=== PATIENT | female | born 1955 | race Caucasian/White ===

== ENCOUNTER 2018-07-03 09:49 | Emergency (ER) | payer OTHER, SELFPAY ==
[2018-07-03 09:51] VITALS: BP 168/80; PULSE 87; RESP 16; TEMP 36.7; O2SAT 99; BMI 25.7
--- NOTE | 2018-07-03 10:03 | EKG12_ITS ---
Test Reason : CP Blood Pressure : / mmHG Vent. Rate : 084 BPM Atrial Rate : 084 BPM P-R Int : 168 ms QRS Dur : 084 ms QT Int : 358 ms P-R-T Axes : 051 045 021 degrees QTc Int : 423 ms Normal sinus rhythm Normal ECG Confirmed by JAN KULKARNI, SARA ([id number]), managing editor BECKY CASTRO ([id number]) on 07/08/2018 11:10:52 AM Referred By: BERTA Confirmed By:SARA MONTOYA MD
--- NOTE | 2018-07-03 10:03 | RAD_ITS ---
STUDY: X-RAY CHEST REASON FOR EXAM: Female, 62 years old. Left-sided chest pain. TECHNIQUE: Single AP portable view of the chest. COMPARISON: Comparison is made with prior study dated June 14, 2013. FINDINGS: EKG electrodes are seen. Mild elevation of the right hemidiaphragm. There is no demonstrated pleural abnormality. Normal size heart. Normal mediastinum and ileana. There is prominence of the pulmonary hilar arteries without peripheral pulmonary vascular congestion, suggesting pulmonary hypertension. Normal visualized aortic arch and descending thoracic aorta. There is a dextroscoliosis of the thoracic spine. Normal visualized ribs, clavicles, and shoulders. There is no demonstrated abnormality of the visualized soft tissue structures of the upper abdomen. RAD/Chest 1 View (Portable) IMPRESSION: Enlarged bilateral pulmonary arteries. Electronically Signed: Guillaume Niño MD at 10:36 EST Tel [phone], Service support ,
[2018-07-03 10:29] LABS: Absolute Neutrophil Count 2.6 X10^3/uL (2.0-7.7); Basophil# 0.02 X10^3/uL; Basophil% 0.5 % (0-1); Eosinophil# 0.16 X10^3/uL; Eosinophils% 3.9 % (0-5); Hematocrit 43.4 % (37-47); Hemoglobin 14.3 g/dl (12.0-15.0); Lymphocyte % 24.5 % (19-41); Mean Corp Hgb Conc 32.9 g/gl (32-36); Mean Corpuscular Hgb 30.1 pg (27.0-32.0); Mean Corpuscular Volume 91.4 fL (81-99); Mean Platelet Vol. 11.8 fl (6.2-12.0); Monocyte# 0.35 X10^3/uL; Monocyte% 8.6 % (0-10); Neutrophil # 2.55 X10^3/uL (2.7-7.7); Neutrophil % 62.5 % (47-70); POSITIVE COUNT NO; POSITIVE DIFFERENTIAL NO; POSITIVE MORPHOLOGY NO; Platelet Count 207 K/mm3 (150-450); RBC Distribution Width CV 12.7 % (11.6-14.6); RBC Distribution Width SD 42.5 fl (35.1-43.9); Red Blood Count 4.75 M/mm3 (4.2-5.4); White Blood Count 4.1 K/mm3 (4.4-11.0)
[2018-07-03] MEDS: Aspirin 81 MG TAB.CHEW 324 MG PO (10:38)
[2018-07-03 10:49] VITALS: BP 162/81; PULSE 72; RESP 11; O2SAT 98
[2018-07-03 10:49] LABS: Anion Gap 8 (5-15); BUN 12 mg/dL (7-18); BUN/Creat Ratio 14.9 RATIO (10-20); Calcium,Total 9.1 mg/dL (8.5-10.1); Chloride 107 mmol/L (98-107); EST Glomerular Filtration Rate 77 mL/min (>60); Est Glom Filt Rate - Afr Amer 93 mL/min (>60); Estimated Creatinine Clearance 60.31 ml/min; Glucose 90 mg/dL (74-106); Potassium 3.9 mmol/L (3.5-5.1); Sodium Level 142 mmol/L (136-145)
--- NOTE | 2018-07-03 11:01 | ED.VISSUMM ---
- ER Visit Summary Date of Service: 07/03/18 Chief Complaint: Chest pain History of Present Illness: The patient is a 62 F with chest pain that started this morning. She was doing back exercises at the time. She was not working out her chest muscles. She describes the pain as an uncomfortable feeling. It is in her left chest and radiates to the back. Worse with moving. She took some Tylenol. No other associated symptoms like shortness of breath, nausea, sweats. No history of heart disease, venous thromboembolism, or thoracic aortic dissection. No fevers or recent illness. No travel or recent surgeries or hospitalizations. Non-smoker. No other medical history. Physical Examination: Afebrile and vital signs unremarkable except blood pressure is 168/80. Alert and oriented. No acute distress. Heart regular rate and rhythm. Lungs clear in all med[place]. Abdomen soft and nontender. Skin normal in color without rash. Calves and pulses normal. Test Results: EKG showed sinus rhythm at a rate of 84. No sign of acute ischemia or infarction pattern. White count 4.1. Metabolic panel normal. Troponin normal. Chest x-ray showed enlarged bilateral pulmonary arteries but was otherwise unremarkable. Emergency Department Course and Treatment: Patient treated with aspirin. Declined anything else for pain. Heart score is 1. Pulse ox 98% and vitals unremarkable. She is low risk for ACS, PE, dissection. Patient declined delta testing and would like to follow-up as an outpatient. Return for any new or worsening issues. Risks discussed. Patient voiced understanding. Treatment Plan: As above Disposition: Discharge Impression: 1. Chest pain unclear etiology This note was generated with [employer] dictation software. It may contain incorrect words, spelling, and punctuation that were not noted in review of the chart prior to signing ED Disposition - Plan for ED Patient: Chief Complaint: Chest Pain Referrals: Gianluca Gambino III, MD [Primary Care Provider] -
--- NOTE | 2018-07-03 11:06 | ED.DEP ---
ED Disposition - Plan for ED Patient: Chief Complaint: Chest Pain Instructions: ED Chest Pain Atypical Unkn Cause Prescriptions: Ibuprofen [Motrin] 800 mg PO TID PRN PRN #20 tab PRN Reason: Pain Cyclobenzaprine [Flexeril] 10 mg PO TID PRN #20 tab PRN Reason: Muscle Spasm Referrals: Gianluca Gambino III, MD [Primary Care Provider] -
== END 2018-07-03 11:39 | disposition home or self-care (01) ==
PROVIDERS: Emergency Provider Emergency Medicine; Family Provider Family Medicine; PCP Family Medicine
DX: R07.9 Chest pain, unspecified (principal); I77.89 Other specified disorders of arteries and arterioles; M41.9 Scoliosis, unspecified
CPT/HCPCS: 71045; 80048; 84484; 85025; 93005; 99285; A4216

== ENCOUNTER 2019-03-06 20:00 | Emergency (ER) | payer OTHER, SELFPAY ==
[2019-03-06 20:01] VITALS: BP 177/93; PULSE 77; RESP 18; TEMP 36.4; O2SAT 99; BMI 26.9
--- NOTE | 2019-03-06 20:19 | CT_ITS ---
STUDY: CT BRAIN WITHOUT CONTRAST REASON FOR EXAM: Female, 63 years old. Paresthesia RADIATION DOSAGE (If Supplied By Facility): CTDIvol = ( 44.99 ) mGy, DLP = ( 779.24 ) mGycm TECHNIQUE: Transaxial CT imaging of the brain was performed without administration of intravenous contrast material. Individualized dose optimization techniques were used for this CT. COMPARISON: No relevant priors. FINDINGS: Normal soft tissue structures. Normal calvarium. Prior postsurgical changes of the right orbit There is mild cerebral atrophy with widening of the extra-axial spaces and ventricular dilatation. There are areas of decreased attenuation within the white matter tracts of the supratentorial brain, consistent with microvascular disease changes. Normal basal ganglia and thalami. Normal brainstem. Normal cerebellum. There is no intracranial hemorrhage. There are no findings of an acute ischemic infarction. Normal visualized paranasal sinuses. CT/Brain/Head without Contrast IMPRESSION: Chronic involutional changes of the brain. Electronically Signed: Riccardo Wilkes DO at 21:31 EDT Tel , Service support ,
--- NOTE | 2019-03-06 20:20 | EKG12_ITS ---
Test Reason : NUMBNESS/TINGLING Blood Pressure : / mmHG Vent. Rate : 069 BPM Atrial Rate : 069 BPM P-R Int : 188 ms QRS Dur : 084 ms QT Int : 378 ms P-R-T Axes : 043 028 005 degrees QTc Int : 405 ms Normal sinus rhythm Possible Left atrial enlargement Borderline ECG Confirmed by BILLY DEL CASTILLO ([id number]), publishing editor NITESH CARRILLO ([id number]) on 03/09/2019 2:20:23 PM Referred By: ERIN Confirmed By:BILLY DEL CASTILLO
[2019-03-06] MEDS: 0.9% Normal Saline 1,000 ML 150 ML IV (20:36)
[2019-03-06 20:43] LABS: Absolute Lymphocyte Count 1.59 X10^3/uL (0.83-4.51); Absolute Neutrophil Count 2.5 X10^3/uL (2.0-7.7); Basophil# 0.03 X10^3/uL; Basophil% 0.6 % (0-1); Eosinophil# 0.16 X10^3/uL; Eosinophils% 3.3 % (0-5); Hematocrit 43.8 % (37-47); Hemoglobin 14.4 g/dL (12.0-15.0); Lymphocyte # 1.59 X10^3/ul (4.0); Lymphocyte % 33.1 % (19-41); Mean Corp Hgb Conc 32.9 g/dL (32-36); Mean Corpuscular Hgb 30.8 pg (27.0-32.0); Mean Corpuscular Volume 93.6 fL (81-99); Mean Platelet Vol. 11.9 fl (6.2-12.0); Monocyte% 10.4 % (0-10); NRBC Flagged by Analyzer 0 % (0-5); Neutrophil # 2.51 X10^3/uL (2.7-7.7); Neutrophil % 52.4 % (47-70); Platelet Count 208 K/mm3 (150-450); RBC Distribution Width CV 12.4 % (11.6-14.6); RBC Distribution Width SD 42.5 fl (35.1-43.9); Red Blood Count 4.68 M/mm3 (4.2-5.4); White Blood Count 4.8 K/mm3 (4.4-11.0)
[2019-03-06 21:01] LABS: Anion Gap 4 (5-15); BUN 17 mg/dL (7-18); BUN/Creat Ratio 21.7 RATIO (10-20); Calcium,Total 9.1 mg/dL (8.5-10.1); Chloride 109 mmol/L (98-107); Creatinine, Serum 0.78 mg/dL (0.55-1.02); EST Glomerular Filtration Rate 79 mL/min (>60); Est Glom Filt Rate - Afr Amer 95 mL/min (>60); Estimated Creatinine Clearance 61.07 ml/min; Glucose 89 mg/dL (74-106); Potassium 3.8 mmol/L (3.5-5.1); Sodium Level 140 mmol/L (136-145)
--- NOTE | 2019-03-06 21:42 | NURSING ---
PAGED FREEDOM AT [id number]
--- NOTE | 2019-03-06 22:02 | ED.DCSUM_ITS ---
- ER Visit Summary Date of Service: 03/06/19 Chief Complaint: [Tingling to face] History of Present Illness: The patient is a 63 F [resents to the emergency department with tingling to her face that started around 2 PM today. Patient states that she was mowing the lawn when she noticed it. She denies any lip or tongue swelling. She initially thought she may just be having allergic reaction to something. She denies any weakness in the extremities or numbness or tingling in extremities. She denies difficulty with speech. She denies visual changes. Patient is never had symptoms like this before. Patient called the nurse line and was advised to come to the emergency department. Patient does have history of hypertension. Patient is on candesartan for her hypertension which she has been on for over a month.] Physical Examination: [HEENT-PERRLA, EOMI. Cranial nerves II through XII grossly intact. TMs clear. Mucous membranes moist. No adenopathy. Cardiovascular-regular rate and rhythm without murmur or ectopy Lungs-clear to auscultation, chest wall stable without crepitus or subcu emphysema Abdomen-normoactive bowel sounds, soft, nontender, no rebound or rigidity, no peritoneal signs. Neuro wefh-gjyiol-suxk and heel vallecillo testing within normal limits, negative Romberg, negative for drift, fundi benign. NIH stroke scale was a 1 for paresthesias to the face but no motor deficits noted. Extremities-intact ?4, normal range of motion, normal pulses, atraumatic] Test Results: [EKG obtained on arrival showed a sinus rhythm with a ventricular rate of 69 bpm with no acute segment changes. CBC with differential was normal. Chemistries normal. Troponin is less than 0.15. CT scan of the brain without contrast showed some chronic microvascular changes but no acute infarcts.] Emergency Department Course and Treatment: [Patient was placed on a ekg monitor on arrival and IV line was established.] Treatment Plan: [Patient case was discussed with neurology on-call Dr. Dawson who does not believe symptoms are neurologic given the fact that she has bilateral paresthesias to both sides of her face. I am in agreement I do not feel her symptoms are neurologic. Possible she may have had a reaction to something came she came in contact with or possibly food related. I do not see any evidence of angioedema and i am not convinced this is medication related. O n repeat examination at 2205 patient states that she feels like her symptoms are improving.] Disposition: [Discharged home in stable condition] Impression: [Paresthesias-etiology uncertain] This note was generated with [employer] dictation software. It may contain incorrect words, spelling, and punctuation that were not noted in review of the chart prior to signing ED Disposition - Plan for ED Patient: Referrals: Gianluca Gambino III, MD [Primary Care Provider] -
--- NOTE | 2019-03-06 22:07 | ED.DEP ---
ED Disposition - Plan for ED Patient: Instructions: Paraesthesias Referrals: Gianluca Gambino III, MD [Primary Care Provider] - 3-5 Days
--- NOTE | 2019-03-06 22:08 | ED.DEP ---
ED Disposition - Plan for ED Patient: Instructions: Paraesthesias Prescriptions: DiphenhydrAMINE [Benadryl] 25 mg PO TID PRN PRN #7 cap PRN Reason: Anaphylaxis Prescription Printed Referrals: Gianluca Gambino III, MD [Primary Care Provider] - 3-5 Days
[2019-03-06 22:16] VITALS: PULSE 61; RESP 16; O2SAT 98
== END 2019-03-06 22:24 | disposition home or self-care (01) ==
LOC: ED 20:50
PROVIDERS: Emergency Provider Emergency Medicine; Family Provider Family Medicine; PCP Family Medicine
DX: R20.2 Paresthesia of skin (principal); I10 Essential (primary) hypertension; I27.20 Pulmonary hypertension, unspecified; Z79.899 Other long term (current) drug therapy
CPT/HCPCS: 70450; 80048; 84484; 85025; 93005; 96360; 96361; 99285; J7030

== ENCOUNTER → 2019-12-17 06:47 | Outpatient (CLI) | payer BC, SELFPAY ==
--- NOTE | 2019-12-17 11:56 | STRESSREP_ITS ---
Stress Test Report Date: 12/17/2019 Procedure: Pharmacologic stress nuclear imaging study Indications: Chest pain Consent: Per the patient Procedure: The patient underwent pharmacologic (Regadenoson) evaluation with a peak heart rate of 96 beats per minute (61 %predicted maximal heart rate) and a peak blood pressure of 124/78 mmHg. The baseline ECG demonstrated normal sinus rhythm. EKG during lexiscan infusion revealed no significant ST-T changes. EKG post infusion revealed no significant ST-T changes [There were no cardiac dysrhythmias pretest, during pharmacologic infusion, or recovery]. [There was no complaint of chest discomfort during pharmacologic infusion or recovery]. The examination was discontinued secondary to completion of protocol. Impression: 1. Lexiscan stress test test is negative for Lexiscan infusion induced EKG changes of ischemia. 2. Lexiscan stress test test is negative for Lexiscan infusion induced chest pain. 3. Results of the nuclear portion of the test is as below Myocardial perfusion imaging study: Technique: The patient was injected with 11 millicuries of technetium 99m Cardiolite and subsequently rest SPECT Cardiolite nuclear imaging was obtained in the horizontal long, vertical long, and short axis views. The patient underwent pharmacologic (Regadenoson) evaluation. Please see above for details. The patient was injected with 33 millicuries of technetium 99m Cardiolite and subsequently stress SPECT Cardiolite nuclear imaging was obtained in the horizontal long, vertical long, and short axis views. A gated Cardiolite study at peak stress was obtained. Interpretation: Rest and stress SPECT Cardiolite nuclear imaging status post realignment, normalization, and attenuation correction demonstrate normal myocardial radioisotope uptake at rest. Mildly decreased radioisotope uptake in the apex on the stress images. Mild apical ischemia cannot be excluded. Gated images reveal no significant regional wall motion abnormalities. The reported LVEF is greater than 70%. Impression: 1. Mild apical ischemia. 2. Estimated ejection fraction is greater than 70%. This note was generated with [employer] software. It may contain incorrect words, spelling, and punctuation that were not noted in checking the note before signing.
== END ==
PROVIDERS: PCP Registered Nurse; Referring Provider Registered Nurse; Visit Provider Registered Nurse
DX: R07.9 Chest pain, unspecified (principal); I10 Essential (primary) hypertension; E78.5 Hyperlipidemia, unspecified
CPT/HCPCS: 78452; 93017; A9500; A4216; J2785

== ENCOUNTER 2019-12-25 09:54 | Day surgery (SDC) | payer BC, SELFPAY ==
[2019-12-23 13:42] VITALS: BMI 26.9
--- NOTE | 2019-12-23 15:20 | RAD_ITS ---
STUDY: X-RAY CHEST REASON FOR EXAM: Female, 64 years old. Abnormal stress test with chest pain. Heart cath saturday. TECHNIQUE: PA and lateral views of the chest. COMPARISON: 07/03/2018 FINDINGS: The lungs are clear and expanded. There is no demonstrated pleural abnormality. Normal size heart. Normal mediastinum and ileana. Normal visualized pulmonary arteries. Normal visualized aortic arch and descending thoracic aorta. There is a dextroscoliosis of the thoracic spine. Normal visualized ribs, clavicles, and shoulders. There is no demonstrated abnormality of the visualized soft tissue structures of the upper abdomen. RAD/Chest PA and Lateral IMPRESSION: Normal x-ray examination of the chest. Electronically Signed: Alessio Modi MD at 15:52 EDT Tel , Service support ,
[2019-12-23 22:15] LABS: Partial Thromboplast Time 27.9 Seconds (24.1-36.2)
[2019-12-23 22:16] LABS: Anion Gap 4 (5-15); BUN 16 mg/dL (7-18); BUN/Creat Ratio 20.8 RATIO (10-20); Calcium,Total 9.2 mg/dL (8.5-10.1); Chloride 107 mmol/L (98-107); Creatinine, Serum 0.77 mg/dL (0.55-1.02); EST Glomerular Filtration Rate 80 mL/min (>60); Est Glom Filt Rate - Afr Amer 97 mL/min (>60); Glucose 93 mg/dL (74-106); Potassium 4.2 mmol/L (3.5-5.1); Sodium Level 140 mmol/L (136-145)
[2019-12-23 22:19] LABS: Eosinophils% 1.5 % (0-5); Hematocrit 41.9 % (37-47); Hemoglobin 13.3 g/dL (12.0-15.0); Lymphocyte % 33.6 % (19-41); Mean Corp Hgb Conc 31.7 g/dL (32-36); Mean Corpuscular Hgb 30.6 pg (27.0-32.0); Mean Corpuscular Volume 96.5 fL (81-99); Mean Platelet Vol. 12.5 fl (6.2-12.0); Monocyte% 10.3 % (0-10); Neutrophil % 53.7 % (47-70); Platelet Count 240 K/mm3 (150-450); RBC Distribution Width CV 12.2 % (11.6-14.6); RBC Distribution Width SD 43.5 fl (35.1-43.9); Red Blood Count 4.34 M/mm3 (4.2-5.4); White Blood Count 4.6 K/mm3 (4.4-11.0)
[2019-12-23 22:20] LABS: Absolute Lymphocyte Count 1.53 X10^3/uL (0.83-4.51); Absolute Neutrophil Count 2.4 X10^3/uL (2.0-7.7); Basophil# 0.03 X10^3/uL; Eosinophil# 0.07 X10^3/uL; Lymphocyte # 1.53 X10^3/ul (4.0); Monocyte# 0.47 X10^3/uL; Neutrophil # 2.44 X10^3/uL (2.7-7.7)
[2019-12-23 22:21] LABS: Basophil% 0.7 % (0-1)
[2019-12-23 22:23] LABS: NRBC Flagged by Analyzer 0 % (0-5)
[2019-12-24 11:31] VITALS: BMI 24.0
--- NOTE | 2019-12-25 12:23 | CL.D_ITS ---
Patient Name: GILMA OCHOA Study Date: 12/25/2019 Performing: Saman Baker MD Ht: 62.99 inches 160 cm : 1955 Wt: 136.69 lbs 62 kg Age: 64 Gender: female BSA: 1.64 PROCEDURE(S) PERFORMED [id number]/COR/LV CLINICAL PROFILE AND INDICATIONS Indications: Suspected CAD, Worsening Angina Heart Failure: None Stress/Imaging Stress Test w/SPECT MPI: Yes Result: Positive High RiskStress Test with SPECT MPI: Positive High Risk CAD Presentations: Unstable angina. CONCLUSIONS No significant CAD. Preserved EF. No significant or MR RECOMMENDATIONS DESCRIPTION OF PROCEDURE The patient arrived to the procedure lab. The risks and benefits of the procedure as well as a full d escription of our services here and current unavailability of surgical backup were fully explained to the patient and/or their significant other prior to the catheterization. The Timeout was completed, verifying the correct patient and procedure. The patient's procedural site was prepped and draped in the usual fashion. Local anesthetic was given subcutaneously to right radial region with Lidocaine 2% . Using a modified Seldinger technique, arterial access was obtained via the right radial artery, a 6 Fr sheath was inserted. Left Coronary Artery selective angiography was performed in multiple views u sing a 5 Fr. JL3.5 catheter. Left Ventriculography was performed in ADAN projection using a 5 Fr. FR4. Right Coronary Artery selective angiography was then performed in multiple views using a 5 Fr. FR4 c atheter.The arterial sheath was pulled and a TR Band was applied for hemostasis, 11cc of air in band CORONARY ANGIOGRAPHY DOMINANCE: Right Dominant LEFT HEART ASSESSMENT Left Ventricular Ejection Fraction: by LV Gram 65 % Normal LV wall motion LEFT MAIN: Angiographically normal LEFT ANTERIOR DESCENDING ARTERY: Angiographically normal CIRCUMFLEX ARTERY: Mild luminal irregularities RIGHT CORONARY ARTERY: Angiographically normal VALVE FINDINGS: No Aortic Valve Stenosis No Mitral Insufficency COMPLICATIONS No Complications PROCEDURE MEDICATIONS Versed 1 mg IV Fentanyl 50 mcg IV Oxygen: 2 L/min via nasal cannula Heparin given IA 12/25/2019 11:54:21 Verapamil 2.5mg, Ntg 100mcgs, 3000 units of Heparin given IA 12/25/2019 11:54:21 SUMMARY OF HEMODYNAMIC DATA Time AIR REST ECG 10:24:58 LV 115/-15, 6 11:56:57 LV 111/-14, 5 11:57:03 LVp 111/-8, 8 11:57:13 AOp 97/50 (71) 11:57:18 Signed By Saman Baker MD On 12/25/2019 12:22:27 Saman Baker MD
== END 2019-12-25 13:51 | disposition home or self-care (01) ==
LOC: CLSP 09:55
PROVIDERS: PCP Family Medicine; Referring Provider Specialist; Visit Provider Specialist
DX: R94.39 Abnormal result of other cardiovascular function study (principal); R07.9 Chest pain, unspecified; Z79.899 Other long term (current) drug therapy; Z79.82 Long term (current) use of aspirin; I27.20 Pulmonary hypertension, unspecified; I10 Essential (primary) hypertension; E78.5 Hyperlipidemia, unspecified; M41.9 Scoliosis, unspecified
CPT/HCPCS: 36415; 71046; 80048; 85025; 85730; 93458; 99152; 99153; J7040; Q9967; C1769; C1894

== ENCOUNTER 2024-08-15 18:50 | Emergency (ER) | payer MEDICARE, BC, SELFPAY ==
[2024-08-15 18:51] VITALS: BP 199/84; PULSE 81; RESP 16; TEMP 36.4; O2SAT 100; BMI 24.0
--- NOTE | 2024-08-15 19:56 | CT_ITS ---
PROCEDURE: ABDOMEN/PELVIS WITHOUT CONT REASON FOR EXAM: Pain TECHNIQUE: Abdomen and pelvis CT without intravenous contrast. Multiplanar reconstructions performed. COMPARISON: None. FINDINGS: Lower chest: Unremarkable. Liver: Unremarkable. Biliary/gallbladder: Unremarkable. Pancreas: Unremarkable. Spleen: Unremarkable. Adrenal glands: Unremarkable. Kidneys: Mild left hydronephrosis is present with a 6.6 mm calculus at the ureterovesicular junction. The right kidney and collecting system is unremarkable. Gastrointestinal/peritoneum: There is a moderate volume of stool throughout the colon.The appendix is not discretely visualized.No free air or free fluid. Vascular: Unremarkable. Lymph nodes: No enlarged lymph nodes by CT size criteria. Pelvic organs: Unremarkable. Bladder: Unremarkable. Bones: There is a levoscoliosis of the lumbar spine. Mild to moderate multilevel degenerative changes are present in the visualized spine. Soft tissues: A fat containing umbilical hernia is present measuring 1.[address]/Abdomen/Pelvis without Cont IMPRESSION: 1. Mild left obstructive uropathy with a 6.6 mm calculus at the ureterovesicula r junction. 2. Significant levoscoliosis of the lumbar spine. 3. Small fat containing umbilical hernia. Reading Location: [place]
--- NOTE | 2024-08-15 20:00 | EX.ED.DYSGE1 ---
HPI <BOYD Calabrese - Last Filed: 08/15/24 21:30> History of Present Illness Chief Complaint: Abd Pain Narrative Narrative: Patient is a 69-year-old female with history of hypertension hyperlipidemia who presents to the [facility] for 2 days of worsening pain in the left lower quadrant. Pay states it comes from her back all the way around to her left lower abdomen. Patient states it is sharp, stabbing when it comes. She denies any fever chills nausea vomiting PFS <BOYD Calabrese - Last Filed: 08/15/24 21:30> [facility] Medical History (Updated 08/15/24 @ 21:27 by BOYD Calabrese) Spondylisthesis Abnormal stress test Chest pain Carpal tunnel syndrome of right wrist Pulmonary hypertension Essential hypertension Hyperlipidemia Kyphoscoliosis and scoliosis Flank pain Home Medications ?Medication ?Instructions ?Recorded ?Last Taken ?Type cholecalciferol (vitamin D3) 50 2,000 unit PO DAILY 07/03/18 Unknown History mcg (2,000 unit) capsule red yeast rice 600 mg capsule 600 mg PO DAILY 07/03/18 Unknown History acetaminophen 500 mg tablet 500 mg PO Q8-10H PRN Pain Score 12/18/19 Unknown History 1-09/07 candesartan 4 mg tablet 4 mg PO DAILY 12/18/19 12/25/19 History fexofenadine 180 mg tablet 180 mg PO DAILY 12/18/19 Unknown History aspirin 81 mg tablet,delayed 81 mg PO DAILY 12/23/19 12/25/19 History release (Adult Aspirin Regimen) mecobalamin (vitamin B12) 1,000 1,000 mcg PO DAILY 12/23/19 Unknown History mcg chewable tablet calcium carbonate 500 mg PO DAILY 02/02/20 Unknown History multivitamin 1 tab PO DAILY 02/02/20 Unknown History ondansetron 4 mg disintegrating 4 mg PO Q8H PRN PRN Nausea #10 tabs 08/15/24 Unknown Rx tablet oxycodone-acetaminophen 5 mg-325 1 tab PO Q8H PRN pain 3 days #10 08/15/24 Unknown Rx mg tablet (Percocet) tabs tamsulosin 0.4 mg capsule (Flomax) 0.4 mg PO DAILY #14 caps 08/15/24 Unknown Rx Allergy/AdvReac Type Severity Reaction Status Date / Time No Known Allergies Allergy Verified 08/15/24 18:53 Family History Mother Breast cancer Father Myocardial infarction CAD (coronary artery disease) CABG Cancer chronic lymphoma leukemia Brother Cancer throat Surgical History History of left heart catheterization (~12/25/19) History of cataract extraction with lens replacement History of facial surgery History of tubal ligation History of section Social History (Updated 02/02/20 @ 14:[address] Samir Baker MD) Smoking Status: Never smoker alcohol intake: never substance use type: does not use caffeine: Yes Type: tea ROS <BOYD Calabrese - Last Filed: 08/15/24 21:30> ROS ED ROS Narrative Constitutional: Negative for fever, chills, weight loss, weakness Eyes: Negative for vision loss, vision change, double vision ENT: Negative for any sore throat, ear pain, congestion Cardiovascular: Negative for any chest pain, tightness, palpitations Respiratory: Negative for any cough, sputum production, hemoptysis, dyspnea, dyspnea on exertion, orthopnea Gastrointestinal: Negative for any nausea, vomiting, diarrhea, constipation, blood in stool, blood in vomit. Positive left flank pain, left lower abdominal pain : Negative for any urinary frequency, dysuria, retention, blood in urine Muscle skeletal: Negative for any neck pain, back pain Neurological: Negative for any headache, syncope, dizziness Skin: Negative for any rashes, itching, abrasions, lacerations Psychiatric: Negative for any depression, anxiety, stress, suicidal ideation, homicidal ideation Hematologic: Negative for any excessive bruising, easy bleeding EXAM <BOYD Calabrese - Last Filed: 08/15/24 21:30> Physical Exam Narrative Exam Narrative: Vital signs reviewed. HEET: Head normocephalic atraumatic, TMs clear bilaterally. Posterior pharynx is clear, moist mucous membranes. Nares clear bilaterally. Neck: Supple with no lymphadenopathy or tenderness. No signs of meningismus. Cardiac: Regular rate and rhythm no murmurs gallops or rubs, equal peripheral pulses bilaterally. Respiratory: Lungs clear to auscultation bilaterally. No chest tenderness. Abdomen: Soft,nondistended. No abdominal bruit or pulsatile masses. No hepatosplenomegaly. Patient did have some pain to the left lower quadrant, this pain she describes that radiates to the left flank into the left back. Extremities: No peripheral edema, no signs of gross trauma or deformity. Active full range of motion of all extremities. Neuro: Cranial nerves II through XII intact, no focal neurological deficits. Skin: Clean dry and intact with no rash, purpura, petechiae, vesicles or pustules. Backs/flank: Positive for left-sided CVA tenderness. No midline spinal tenderness, no deformity. Psych: Normal mood and affect. No SI, HI or acute psychosis. Const Vital Signs: 08/15/24 18:51 08/15/24 20:51 08/15/24 20:51 Temperature 97.5 F L 98.3 F Temperature Source Temporal Pulse Rate 81 72 72 Respiratory Rate 16 16 16 Blood Pressure 199/84 H 180/79 H 180/79 H Blood Pressure Mean 122 112 112 Pulse Ox 100 98 98 Oxygen Delivery Method Room Air Positive well nourished and well developed General Appearance ED: well developed <Dr. Jong Chapa DO - Last Filed: 08/15/24 22:50> Physical Exam Const Vital Signs: 08/15/24 18:51 08/15/24 20:51 08/15/24 20:51 Temperature 97.5 F L 98.3 F Temperature Source Temporal Pulse Rate 81 72 72 Respiratory Rate 16 16 16 Blood Pressure 199/84 H 180/79 H 180/79 H Blood Pressure Mean 122 112 112 Pulse Ox 100 98 98 Oxygen Delivery Method Room Air [facility] <BOYD Calabrese - Last Filed: 08/15/24 21:30> [facility] Lab Data Labs: Laboratory Results - last 24 hr 08/15/24 08/15/24 20:00 20:12 WBC 8.7 RBC 4.68 Hgb 14.0 Hct 42.8 MCV 91.5 MCH 29.9 MCHC 32.7 RDW Std Deviation 40.7 RDW Coeff of Sophia 12.2 Plt Count 238 MPV 12.1 H Immature Gran % (Auto) 0.200 Neut % (Auto) 79.2 H Lymph % (Auto) 13.6 L [place] % (Auto) 6.0 Eos % (Auto) 0.7 Baso % (Auto) 0.3 Absolute Neuts (auto) 6.9 Absolute Lymphs (auto) 1.18 Nucleated RBC % 0 Sodium 140 Potassium 3.8 Chloride 106 Carbon Dioxide 26.0 Anion Gap 8 BUN 19 H Creatinine 0.80 Estim Creat Clear Calc 57.31 Est GFR (MDRD) Af Amer 91 Est GFR (MDRD) Non-Af 76 BUN/Creatinine Ratio 23.7 H Glucose 104 Calcium 9.7 Total Bilirubin 0.30 AST 17 ALT 23 Alkaline Phosphatase 96 Total Protein 8.0 Albumin 4.3 Globulin 3.7 Albumin/Globulin Ratio 1.2 Lipase 45 L Urine Color Yellow Urine Clarity Clear Urine pH 6.5 Ur Specific Celina 1.010 Urine Protein Negative Urine Glucose (UA) Normal Urine Ketones Negative Urine Occult Blood Negative Urine Nitrite Negative Urine Bilirubin Negative Urine Urobilinogen Normal Ur Leukocyte Esterase Negative Urine RBC 0 SEEN Urine WBC 0 SEEN Ur Squamous Epith Cells 0 SEEN Urine Bacteria 0 SEEN Urine Mucus 0 SEEN Radiography Diagnostic Testing: Clinical Impression(s) from Imaging Studies Abdomen/Pelvis CT 08/15/24 19:56 IMPRESSION: 1. Mild left obstructive uropathy with a 6.6 mm calculus at the ureterovesicular junction. 2. Significant levoscoliosis of the lumbar spine. 3. Small fat containing umbilical hernia. Reading Location: [place] Treatment and Re-Evaluation :: Differential diagnosis includes however is not limited to: Muscle strain, acute diverticulitis, bowel obstruction, obstructing uropathy, pyelonephritis, viral gastroenteritis Patient is hypertensive, presenting to the [facility] for complaints of pain to the left lower abdomen, left flank area. Physical examination is most consistent with obstructing uropathy or a acute diverticulitis. Patient will receive basic laboratory values, urinalysis. IV fluids, Zofran as well as Toradol be given. CT scan without contrast will be obtained. All radiologic examinations were read, reviewed by the emergency department attending. From these reads, a plan of care will be put in place. Patient CBC was unremarkable, chemistries were unremarkable, patient's creatinine normal at 0.80. Lipase is only slightly low at 45. Urinalysis was negative for any blood, infection. CT scan shows a mild left obstructive uropathy with a 6.6 mm calculus at the ureterovesicular junction. This does explain all the patient's symptoms. I spoke with the patient, she is showing no signs of any infection. At this time, believe the patient will pass the stone. She will be discharged home, given a prescription for Percocet, Flomax, as well as Zofran. She will continue taking ibuprofen if needed. She was given strict return precautions to return for any worsening uncontrolled pain, nausea or vomiting, fever or chills. All questions answered, stable for discharge. <Dr. Jong Chapa, DO - Last Filed: 08/15/24 22:50> [facility] Narrative Medical decision making narrative: I have personally performed a face to face assessment of the patient and have reviewed the ANETA Note. I performed a substantive portion of the visit including all aspects of the following. My ratliff findings include: History: Patient presents with abdominal pain that began yesterday. Patient states it began rather suddenly. Patient states it comes and goes. Patient states it started 2 hours after eating lunch yesterday. Patient states that today she ate lunch and her pain returned approximately 2 hours after eating her lunch today. Patient describes her pain as sharp. Patient states her pain is over the left lower abdomen. Patient states it radiates into her back. Patient denies any nausea or vomiting. Patient denies any fevers or chills. Exam: Vital signs are stable except for an elevated blood pressure of 199/84. Patient is afebrile. Patient is in no acute distress. Oral mucosa is pink and moist. Neck is supple. Trachea is midline. There is no JVD. Heart was regular rate and rhythm. Lungs are clear and equal bilaterally. Abdomen is soft. Bowel sounds are normal. There is some mild left lower quadrant tenderness. There is no rebound or guarding noted. There is some mild left CVA tenderness. Cranial nerves II through XII are intact. There are no focal motor or sensory deficits noted. Medical Decision Making: Differential diagnosis includes diverticulitis, colitis, gastroenteritis, pancreatitis, ureteral calculus, pyelonephritis, and urinary tract infection. CBC will be obtained to assess for leukocytosis and anemia. Comprehensive metabolic profile will be obtained to assess for electrolyte abnormality and renal function. Lipase will be obtained to assess for pancreatitis. Urinalysis will be obtained to assess for urinary tract infection and hematuria. CT scan of the abdomen and pelvis will be obtained to assess for diverticulitis, colitis, and ureteral calculus. Patient was given IV fluids, Toradol, and Zofran. CBC was reviewed and was within normal limits. Comprehensive metabolic profile was reviewed and was essentially within normal limits. Lipase was reviewed and was normal at 45. Urinalysis was reviewed. There is no evidence of urinary tract infection or hematuria. CT scan of the abdomen and pelvis was obtained. There is a 6.6 mm calculus at the left ureterovesicular junction. There is mild hydroureter and hydronephrosis. There is no other acute abnormality noted. This was interpreted by the radiologist and was also independently reviewed by myself. Patient was feeling better on reevaluation. Patient was advised of her findings. Patient was instructed to drink plenty of fluids. Patient was given prescriptions for Percocet, Flomax, and Zofran. Patient was instructed to follow-up with her primary care physician in 5 to 7 days. Patient was also given referral for urology. Patient was instructed to return if worse in any way. Patient understood and was agreeable with the plan. All questions were answered. Lab Data Labs: Laboratory Results - last 24 hr 08/15/24 08/15/24 20:00 20:12 WBC 8.7 RBC 4.68 Hgb 14.0 Hct 42.8 MCV 91.5 MCH 29.9 MCHC 32.7 RDW Std Deviation 40.7 RDW Coeff of Sophia 12.2 Plt Count 238 MPV 12.1 H Immature Gran % (Auto) 0.200 Neut % (Auto) 79.2 H Lymph % (Auto) 13.6 L [place] % (Auto) 6.0 Eos % (Auto) 0.7 Baso % (Auto) 0.3 Absolute Neuts (auto) 6.9 Absolute Lymphs (auto) 1.18 Nucleated RBC % 0 Sodium 140 Potassium 3.8 Chloride 106 Carbon Dioxide 26.0 Anion Gap 8 BUN 19 H Creatinine 0.80 Estim Creat Clear Calc 57.31 Est GFR (MDRD) Af Amer 91 Est GFR (MDRD) Non-Af 76 BUN/Creatinine Ratio 23.7 H Glucose 104 Calcium 9.7 Total Bilirubin 0.30 AST 17 ALT 23 Alkaline Phosphatase 96 Total Protein 8.0 Albumin 4.3 Globulin 3.7 Albumin/Globulin Ratio 1.2 Lipase 45 L Urine Color Yellow Urine Clarity Clear Urine pH 6.5 Ur Specific [place] 1.010 Urine Protein Negative Urine Glucose (UA) Normal Urine Ketones Negative Urine Occult Blood Negative Urine Nitrite Negative Urine Bilirubin Negative Urine Urobilinogen Normal Ur Leukocyte Esterase Negative Urine RBC 0 SEEN Urine WBC 0 SEEN Ur Squamous Epith Cells 0 SEEN Urine Bacteria 0 SEEN Urine Mucus 0 SEEN Radiography Diagnostic Testing: Clinical Impression(s) from Imaging Studies Abdomen/Pelvis CT 08/15/24 19:56 IMPRESSION: 1. Mild left obstructive uropathy with a 6.6 mm calculus at the ureterovesicular junction. 2. Significant levoscoliosis of the lumbar spine. 3. Small fat containing umbilical hernia. Reading Location: [facility] Discharge Plan Triage Chief Complaint: Abd Pain ED Midlevel Provider: Jake Ayala ED Provider: Jong Chapa Dx/Rx/DC Orders Clinical Impression: Kidney stone on left side Instructions: ED Kidney Stone, Passed, ED Kidney Stone with Pain Prescriptions: New ondansetron 4 mg tablet,disintegrating 4 mg PO Q8H PRN PRN (Reason: Nausea) Qty: 10 0RF oxycodone-acetaminophen [Percocet] 5-325 mg tablet 1 tab PO Q8H PRN (Reason: pain) 3 Days Qty: 10 0RF tamsulosin [Flomax] 0.4 mg capsule 0.4 mg PO DAILY Qty: 14 0RF No Action mecobalamin (vitamin B12) 1,000 mcg tablet,chewable 1,000 mcg PO DAILY aspirin [Adult Aspirin Regimen] 81 mg tablet,delayed release (DR/EC) 81 mg PO DAILY candesartan 4 mg tablet 4 mg PO DAILY Patient Comments: TAKE 1 TABLET BY MOUTH EVERY DAY acetaminophen 500 mg tablet 500 mg PO Q8-10H PRN (Reason: Pain Score 1-3/10) fexofenadine 180 mg tablet 180 mg PO DAILY calcium carbonate 500 mg calcium (1,250 mg) tablet 500 mg PO DAILY multivitamin Tablet 1 tab PO DAILY red yeast rice 600 MG capsule 600 mg PO DAILY cholecalciferol (vitamin D3) 2,000 UNIT capsule 2,000 unit PO DAILY Primary Care Provider: Roque Watts Referrals: Adriana Vivas MD [Med Staff - Active Staff] - Roque Watts MD [Primary Care Provider] - Activity Restrictions/Additional Instructions: He has a 6.6 mm stone on the left side. This stone should pass. Please return for any worsening uncontrolled pain, fever chills, nausea or vomiting. Print Language: Arabic Disposition Disposition: Home, Self Care Discharge Date/Time: 08/15/24 21:46
[2024-08-15 20:09] LABS: Bacteria 0 SEEN /hpf (None Seen); Mucous, Urine 0 SEEN /hpf (<or=2+); Squamous Epithelial Cells - UA 0 SEEN /hpf (5-10); White Blood Cells 0 SEEN /hpf (0-5)
[2024-08-15 20:11] LABS: Color, Urine Yellow (Yellow); Glucose, Dipstick Normal (Normal); Ketone-Dipstick Negative (Negative); Leukocyte Esterase-Dipstick Negative /ul (Negative); Nitrite-Dipstick Negative (Negative); Occult Blood-Urine Negative /ul (Negative); Protein-Dipstick Negative (Negative); Urine Bilirubin Dipstick Negative (Negative); Urine Clarity Clear (Clear); Urine Urobilinogen Normal (Normal); Urine pH 6.5 (5.0 - 8.0)
[2024-08-15 20:20] LABS: Absolute Lymphocyte Count 1.18 X10^3/uL (0.83-4.51); Absolute Neutrophil Count 6.9 X10^3/uL (2.0-7.7); Basophil# 0.03 X10^3/uL; Basophil% 0.3 % (0-1); Eosinophil# 0.06 X10^3/uL; Eosinophils% 0.7 % (0-5); Hematocrit 42.8 % (37-47); Lymphocyte # 1.18 X10^3/ul (0.83-4.51); Lymphocyte % 13.6 % (19-41); Mean Corp Hgb Conc 32.7 g/dL (32-36); Mean Corpuscular Hgb 29.9 pg (27.0-32.0); Mean Corpuscular Volume 91.5 fL (81-99); Mean Platelet Vol. 12.1 fl (6.2-12.0); Monocyte# 0.52 X10^3/uL; NRBC Flagged by Analyzer 0 % (0-5); Neutrophil # 6.86 X10^3/uL (2.7-7.7); Neutrophil % 79.2 % (47-70); Platelet Count 238 K/mm3 (150-450); RBC Distribution Width CV 12.2 % (11.6-14.6); RBC Distribution Width SD 40.7 fl (35.1-43.9); Red Blood Count 4.68 M/mm3 (4.2-5.4); White Blood Count 8.7 K/mm3 (4.4-11.0)
[2024-08-15] MEDS: 0.9% Normal Saline (1000mL) 1,000 ML 999 ML IV (20:20)
[2024-08-15] MEDS: Ondansetron 4 MG/2 ML Vial IV (20:21)
[2024-08-15] MEDS: Ketorolac 15 MG/ML Vial IV (20:22)
[2024-08-15 20:32] LABS: Red Blood Cells-Urine 0 SEEN /hpf (0-5)
[2024-08-15 20:36] LABS: ALB/GLOB Ratio 1.2 RATIO (0.9-2.4); AST(SGOT) 17 U/L (15-37); Alanine Aminotransfer ALT/SGPT 23 U/L (13-56); Albumin, Serum 4.3 g/dL (3.2-5.0); Alkaline Phosphatase 96 U/L (45-117); Anion Gap 8 (5-15); BUN 19 mg/dL (7-18); BUN/Creat Ratio 23.7 RATIO (10-20); Calcium,Total 9.7 mg/dL (8.5-10.1); Chloride 106 mmol/L (98-107); EST Glomerular Filtration Rate 76 mL/min (>60); Est Glom Filt Rate - Afr Amer 91 mL/min (>60); Estimated Creatinine Clearance 57.31 ml/min; Globulin 3.7 g/dL (2.2-4.2); Glucose 104 mg/dL (74-106); Lipase 45 U/L (73-393); Potassium 3.8 mmol/L (3.5-5.1); Sodium Level 140 mmol/L (136-145)
[2024-08-15 20:51] VITALS: BP 180/79; PULSE 72; RESP 16; TEMP 36.8; O2SAT 98
== END 2024-08-15 21:46 | disposition home or self-care (01) ==
PROVIDERS: Nurse Practitioner; Emergency Provider Emergency Medicine; PCP Family Medicine; Visit Provider Emergency Medicine
DX: N13.2 Hydronephrosis with renal and ureteral calculous obstruction (principal); I27.20 Pulmonary hypertension, unspecified; I10 Essential (primary) hypertension; E78.5 Hyperlipidemia, unspecified; Z79.82 Long term (current) use of aspirin; Z79.899 Other long term (current) drug therapy
CPT/HCPCS: 74176; 80053; 81001; 83690; 85025; 96361; 96374; 96375; 99284; A4216; J2405

== ENCOUNTER 2024-08-18 09:57 | Day surgery (SDC) | payer MEDICARE, BC, SELFPAY ==
--- NOTE | 2024-08-17 15:56 | PAT.ANE_ITS ---
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 When Was Last Pacemaker Check QUESTION #4 FULL TEXT: You/Your Family Experience fever (hyperthermia) with Anesthesia Last Oral Intake Last Oral intake: Last Oral Intake NPO since Meds taken in AM with sips of water? Meds patient instructed to take am of surgery PONV PONV - powerhouse electrician apprentice: PONV - powerhouse electrician apprentice Female Yes 08/17/24 15:40 HX of Motion Sickness No 08/17/24 15:40 HX of N/V After Surgery No 08/17/24 15:40 Non-Smoker Yes 08/17/24 15:40 Duration of Surgery greater Yes 08/17/24 15:40 than 60 minutes Number of Risk Factors 3 08/17/24 15:40 PONV Score Moderate Risk 08/17/24 15:40 Height & Weight Height & Weight: Anesthesia: Height & Weight Height 5 ft 4 in 08/15/24 18:51 Respiratory Assessment Respiratory Assessment - powerhouse electrician apprentice: Respiratory Tract Infection Hx - powerhouse electrician apprentice Hx Respiratory Tract Infection No 08/17/24 15:40 STOP Sleep Apnea STOP Sleep Apnea - powerhouse electrician apprentice: STOP Sleep Apnea - powerhouse electrician apprentice Hx Hypertension Yes: CONTROLLED WITH MED 08/17/24 15:40 Hx Sleep Apnea No 08/17/24 15:40 CPAP BIPAP Do you snore loudly (louder No 08/17/24 15:40 than talking or can be heard Do you often feel tired/ No 08/17/24 15:40 fatigued/ sleepy during daytime? Has anyone observed you stop No 08/17/24 15:40 breathing during sleep? STOP Results Negative 08/17/24 15:40 QUESTION #5 FULL TEXT : Do you snore loudly (louder than talking or can be heard through closed doors)? 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 Specify any problems Hx of Preganancy in last 3 No 08/17/24 15:40 Months Nurse Filling Out Transfusion DSCHRIBER 08/17/24 15:40 & Questions: Date: 08/17/24 08/17/24 15:40 Time: 15:42 08/17/24 15:40 Patient unable to answer at this time (ie. confused, unrespo /Reproduction History /Reproductive History - powerhouse electrician apprentice: /Reproductive Hx- powerhouse electrician apprentice Hx Now No 08/17/24 15:40 Gestational Age (in weeks): EDC: Hx Hx Para Hx Section SAB No 08/17/24 15:40 PFSH Medical History (Updated 08/17/24 @ 15:49 by Nicole Scott) Wears glasses Post-menopausal Back pain Injury of head and neck Dietary restriction Non-smoker History of edema History of echocardiogram History of stress test Cardiology follow-up encounter Spondylisthesis Pulmonary hypertension Essential hypertension Hyperlipidemia Kyphoscoliosis and scoliosis Flank pain Home Medications ?Medication ?Instructions ?Recorded ?Last Taken ?Type cholecalciferol (vitamin D3) 50 2,000 unit PO DAILY Unknown History mcg (2,000 unit) capsule red yeast rice 600 mg capsule 600 mg PO DAILY 07/03/18 Unknown History fexofenadine 180 mg tablet 180 mg PO DAILY 12/18/19 Un known History mecobalamin (vitamin B12) 1,000 1,000 mcg PO DAILY Unknown History mcg chewable tablet calcium carbonate 500 mg PO DAILY 02/02/20 Unk nown History multivitamin 1 tab PO DAILY 02/02/20 Unkn own History ondansetron 4 mg disintegrating 4 mg PO Q8H PRN PRN Na usea #10 tabs 08/15/24 Unknown Rx tablet oxycodone-acetaminophen 5 mg-325 1 tab PO Q8H PRN pain 3 days #10 08/15/24 Unknown Rx mg tablet (Percocet) tabs tamsulosin 0.4 mg capsule (Flomax) 0.4 mg PO DAILY #14 caps 08/15/24 Unknown Rx alendronate 70 mg tablet 70 mg PO QWEEK 08/17/24 Unkn own History losartan 25 mg tablet 25 mg PO DAILY 08/17/24 Unkn own History Allergy/AdvReac Type Severity Reaction Status Date / Time No Known Allergies Allergy Verified 08/17/24 15:35 Family History Mother Breast cancer Father Myocardial infarction CAD (coronary artery disease) CABG Cancer chronic lymphoma leukemia Brother Cancer throat Surgical History (Updated 08/17/24 @ 15:49 by Nicole Scott) Hx of colonoscopy History of carpal tunnel surgery of left wrist Hx of right cataract extraction Hx of left cataract extraction History of left heart catheterization (~12/25/19) History of facial surgery History of tubal ligation History of section Social History (Updated 02/02/20 @ 14:[address] Samir Baker MD) Smoking Status: Never smoker alcohol intake: never substance use type: does not use caffeine: Yes Type: tea Audit: Pertinent Findings Pertinent Findings EKG Perinent findings: 03/06/2019 normal sinus rhythm 69 bpm possible left atrial lodgment Heart catheterization pertinent findings: 12/25/2019 no significant coronary disease. Normal EF Consult pertinent findings: Cardiology 02/02/2020 chest pain appears noncardiac workup negative. Essential hypertension. Chronic. Recommendation Anesthesia Recommendation Anesthesia recommendation: OPTIMIZED for anesthesia
[2024-08-18] VITALS (9 sets, daily range): BP systolic 103–147; BP diastolic 58–70; PULSE 68–94; RESP 16–20; TEMP 36.4–36.7; O2SAT 93–99; BMI 25.5
[2024-08-18] MEDS: 0.9% Normal Saline (1000mL) 1,000 ML 15 ML IV (10:28)
--- NOTE | 2024-08-18 11:10 | PCM.PRE.AN2 ---
ASA Classification* ASA Classification ASA Classification: 2 Assessment & Plan Anesthesia* Anesthesia Assessment Anesthesia Assessment: Discussed sedation and/or anesthesia options, risks, benefits, and alternatives with patient/parents/legal guardian/POA. Questions invited. The patient/parents/legal guardian/POA seems to understand and agrees to proceed with anesthesia plan. Reviewed the physical assessment, medical history, allergy history and patient home medications list prior to surgery/procedure/anesthetic and documented any changes. Performed airway and anesthesia risk assessments. Anesthesia Type Anesthesia Type: General History Source History Obtained from:: Patient and Chart Anesthesia Focused Assessment* Temperature: 97.6 F Pulse Rate: 94 Blood Pressure: 103/70 Respiratory Rate: 16 Pulse Ox: 99 Oxygen Delivery Method: Room Air Airway Assessment Mouth opens: >3 cm Mallampati Score: IV Teeth Condition: Caps/Crowns (Patient has several crowns on molars. They are all tight.) Neck Range of motion (ROM): Limited ROM (Somewhat decreased extension) Focused Labs Anesthesia Preop lab: CBC WBC 8.7 K/mm3 (4.4-11.0) 08/15/24 20:12 08/15/24 RBC 4.68 M/mm3 (4.2-5.4) 08/15/24 20:12 08/15/24 Hgb 14.0 g/dL (12.0-15.0) 08/15/24 20:12 08/15/24 Hct 42.8 % (37-47) 08/15/24 20:12 08/15/24 Plt Count 238 K/mm3 (150-450) 08/15/24 20:12 08/15/24 CHEMISTRY Potassium 3.8 mmol/L (3.5-5.1) 08/15/24 20:12 08/15/24 Sodium 140 mmol/L (136-145) 08/15/24 20:12 08/15/24 BUN 19 mg/dL (7-18) H 08/15/24 20:12 08/15/24 Creatinine 0.80 mg/dL (0.55-1.02) 08/15/24 20:12 08/15/24 Glucose 104 mg/dL (74-106) 08/15/24 20:12 08/15/24 COAG Pre-Assessment Diagnosis/Proposed Procedure Planned Operative Procedure(s): CYSTO URETEROSCOPY LEFT STONE BASKET EXTRACTION LEFT STENT Anesthesia History Anesthesia History - construction controller: Anesthesia History - construction controller Hx Hospitalization No 08/17/24 15:40 Any Problems With Anesthesia No 08/17/24 15:40 Cholinesterase deficiency No 08/17/24 15:40 You/Your Family Experience No 08/17/24 15:40 fever (hyperthermia) with Relationship Recent Exposure to Contagious No 08/18/24 10:19 Disease Does patient have nerve No 08/17/24 15:40 stimulator Patient instructed to have device shut off --Does patient have Pacemaker No 08/18/24 10:19 or ICD? When Was Last Pacemaker Check QUESTION #4 FULL TEXT: You/Your Family Experience fever (hyperthermia) with Anesthesia Last Oral Intake Last Oral intake: Last Oral Intake NPO since 09:00 08/18/24 10:19 Meds taken in AM with sips of Yes 08/18/24 10:19 water? Meds patient instructed to see mar 08/18/24 10:19 take am of surgery Any additional information?: Yes NPO since: 09:00 (Patient took her medication with a sip of water at 9 AM.) Meds taken in AM with sips of water?: Yes PONV PONV - construction controller: PONV - construction controller Female Yes 08/17/24 15:40 HX of Motion Sickness No 08/17/24 15:40 HX of N/V After Surgery No 08/17/24 15:40 Non-Smoker Yes 08/17/24 15:40 Duration of Surgery greater Yes 08/17/24 15:40 than 60 minutes Number of Risk Factors 3 08/17/24 15:40 PONV Score Moderate Risk 08/17/24 15:40 Height & Weight Height & Weight: Anesthesia: Height & Weight Height 5 ft 4 in 08/18/24 10:19 Weight: 67.585 kg 08/18/24 10:19 Body Mass Index (BMI) 25.5 08/18/24 10:19 Respiratory Assessment Respiratory Assessment - construction controller: Respiratory Tract Infection Hx - construction controller Hx Respiratory Tract Infection No 08/17/24 15:40 STOP Sleep Apnea STOP Sleep Apnea - construction controller: STOP Sleep Apnea - construction controller Hx Hypertension Yes: CONTROLLED WITH MED 08/17/24 15:40 Hx Sleep Apnea No 08/17/24 15:40 CPAP BIPAP Do you snore loudly (louder No 08/17/24 15:40 than talking or can be heard Do you often feel tired/ No 08/17/24 15:40 fatigued/ sleepy during daytime? Has anyone observed you stop No 08/17/24 15:40 breathing during sleep? STOP Results Negative 08/17/24 15:40 QUESTION #5 FULL TEXT : Do you snore loudly (louder than talking or can be heard through closed doors)? 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 Specify any problems Hx of Preganancy in last 3 No 08/17/24 15:40 Months Nurse Filling Out Transfusion DSCHRIBER 08/17/24 15:40 & Questions: Date: 08/17/24 08/17/24 15:40 Time: 15:42 08/17/24 15:40 Patient unable to answer at this time (ie. confused, unrespo /Reproduction History /Reproductive History - construction controller: /Reproductive Hx- construction controller Hx Now No 08/17/24 15:40 Gestational Age (in weeks): EDC: Hx Hx Para Hx Section SAB No 08/17/24 15:40 Active Medications Active Medications: Current Medications Generic Name Dose Route Start Last Admin Trade Name Freq PRN Reason Stop Dose Admin Sodium Chloride 1,000 mls @ 15 mls/hr 08/18/24 10:05 08/18/24 10:28 IV 08/23/24 23:24 15 mls/hr .Q48H AMOL Administration Protocol PFSH Medical History Wears glasses Post-menopausal Back pain Injury of head and neck Dietary restriction Non-smoker History of edema History of echocardiogram History of stress test Cardiology follow-up encounter Spondylisthesis Pulmonary hypertension Essential hypertension Hyperlipidemia Kyphoscoliosis and scoliosis Flank pain Home Medications ?Medication ?Instructions ?Recorded ?Last Taken ?Type cholecalciferol (vitamin D3) 50 2,000 unit PO DAILY 07/03/18 Unknown History mcg (2,000 unit) capsule red yeast rice 600 mg capsule 600 mg PO DAILY 07/03/18 Unknown History fexofenadine 180 mg tablet 180 mg PO DAILY 12/18/19 Unknown History mecobalamin (vitamin B12) 1,000 1,000 mcg PO DAILY 12/23/19 Unknown History mcg chewable tablet calcium carbonate 500 mg PO DAILY 02/02/20 Unknown History multivitamin 1 tab PO DAILY 02/02/20 Unknown History ondansetron 4 mg disintegrating 4 mg PO Q8H PRN PRN Nausea #10 tabs 08/15/24 Unknown Rx tablet oxycodone-acetaminophen 5 mg-325 1 tab PO Q8H PRN pain 3 days #10 08/15/24 Unknown Rx mg tablet (Percocet) tabs tamsulosin 0.4 mg capsule (Flomax) 0.4 mg PO DAILY #14 caps 08/15/24 Unknown Rx alendronate 70 mg tablet 70 mg PO QWEEK 08/17/24 Unknown History losartan 25 mg tablet 25 mg PO DAILY 08/17/24 08/18/24 History Allergy/AdvReac Type Severity Reaction Status Date / Time No Known Allergies Allergy Verified 08/18/24 10:18 Family History Mother Breast cancer Father Myocardial infarction CAD (coronary artery disease) CABG Cancer chronic lymphoma leukemia Brother Cancer throat Surgical History Hx of colonoscopy History of carpal tunnel surgery of left wrist Hx of right cataract extraction Hx of left cataract extraction History of left heart catheterization (~12/25/19) History of facial surgery History of tubal ligation History of section Social History Smoking Status: Never smoker alcohol intake: never substance use type: does not use caffeine: Yes Type: tea Review of Systems (Anesthesia) ROS Narrative System reviewed and no additional complaints, except as documented.
[2024-08-18] MEDS: Cefazolin 2 GM in Syringe IV (11:32)
--- NOTE | 2024-08-18 12:00 | CALC_PTH ---
PATIENT: GILMA OCHOA LOC: [facility] [place] U#:[id number] AGE/SX: 69/F ROOM: RE08/18/[address]: Dr. Adriana Vivas MD : 1955 BED: DIS: 08/18/2024 SPEC #: [id number] RECD: 08/18/24 13:05 STATUS: GUERO VALDIVIA #: [id number] SHIV: 08/18/24 12:[address]: Adriana Vivas DEPT: SURGICAL PATHOLOGY RECD BY: Shavonne Calix ENTERED: 08/18/24 13:34 SP TYPE: Calculi OTHR DR: Dr. Roque Watts MD Tissues: CALCULI Procedures: Surgery Specimen Level I HEADER OPERATION: Left ureteroscopy, stone extraction from bladder PRE-OP DIAGNOSIS: Left renal calculi TISSUE SUBMITTED: Left kidney stone GROSS DIAGNOSIS A fragment of stone, clinically left kidney stone (gross only). 08/18/2024 COMMENT The calculus is submitted in its entirety for chemical stone analysis. The results from this study will be reported separately. GROSS DESCRIPTION Received without fixative labeled with the patient's name and designated left kidney stone. The specimen consists of a fragment of black stone measuring 0.8 x 0.4 x 0.2cm. The entire specimen is submitted for stone analysis. 08/18/2024 CPT: 32215
--- NOTE | 2024-08-18 12:13 | EX.PCM.DISCH ---
Discharge Instructions Diet Discharge Diet: No restrictions Activity Discharge Activity: Return to Normal Activity Dressing / Incision Call your doctor if you observe: Fever of 101 or Higher, Inability to urinate and Inability to have a bowel movement Follow Up Care Please Follow Up With: Adriana Vivas MD When: the office will call for follow up arrangements Test Results: Test results from this visit will be discussed in further detail at your follow-up appointment, if applicable. Discharge Plan Admission Attending Provider: Adriana Vivas Primary Care Provider: Roque Watts Instructions Print Language: Micronesian Discharge Orders/Prescriptions Prescriptions: New oxycodone-acetaminophen 5-325 mg tablet 1 tab PO Q8H PRN (Reason: pain) 3 Days Qty: 10 0RF cephalexin 500 mg capsule 500 mg PO 3XD 5 Days Qty: 15 0RF phenazopyridine 200 mg tablet 200 mg PO TID PRN (Reason: pain) Qty: 30 3RF Continued mecobalamin (vitamin B12) 1,000 mcg tablet,chewable 1,000 mcg PO DAILY fexofenadine 180 mg tablet 180 mg PO DAILY calcium carbonate 500 mg calcium (1,250 mg) tablet 500 mg PO DAILY multivitamin Tablet 1 tab PO DAILY red yeast rice 600 MG capsule 600 mg PO DAILY cholecalciferol (vitamin D3) 2,000 UNIT capsule 2,000 unit PO DAILY ondansetron 4 mg tablet,disintegrating 4 mg PO Q8H PRN PRN (Reason: Nausea) Qty: 10 0RF oxycodone-acetaminophen [Percocet] 5-325 mg tablet 1 tab PO Q8H PRN (Reason: pain) 3 Days Qty: 10 0RF alendronate 70 mg tablet 70 mg PO QWEEK Patient Comments: PLEASE SEE ATTACHED FOR DETAILED DIRECTIONS losartan 25 mg tablet 25 mg PO DAILY Discontinued tamsulosin [Flomax] 0.4 mg capsule 0.4 mg PO DAILY Qty: 14 0RF Referrals / Follow Up: Roque Watts MD [Primary Care Provider] - Disposition Disposition (needs filled in before D/C Order can be placed): Home, Self Care
--- NOTE | 2024-08-18 12:16 | OP.PCM_ITS ---
Operative Report (Standard) Operative Information Date of Procedure: 08/18/24 Pre-Operative Diagnosis: Left ureteral calculus Post-Operative Diagnosis: Same Surgery/Procedure Performed: Cystoscopy, left ureteroscopy, laser lithotripsy, stone basket extraction, left ureteral stent insertion can line operator: No Type of Anesthesia: General RN Documented Start/Stop Times: Operation Date: 08/18/24 12:00 Case Time Into Pre-Op 08/18/24 10:02 Select all DRAINS/GRAFTS/IMPLANTS that apply: Drains Drain details: 6 Trinidadian by 24 cm JJ stent Estimated Blood Loss: <5cc Specimen collected: Yes Description of specimen(s) removed: Ureteral calculus Description of surgery: The patient is a 69-year-old female with a left ureteral calculus who presents for surgical intervention. Informed consent was obtained. She was taken to the operating room and placed on the operating room table. Anesthesia monitored the head, neck, airway, IV access and vital signs throughout the case. Once anesth esia was appropriate ministered, she was placed into dorsolithotomy position was prepped and draped in usual sterile fashion. The cystoscope was inserted through the urethra under direct visualization into the urinary bladder. Direct visualization of the bladder mucosa was done revealing no evidence of mass, or ulceration. The left ureteral orifice was gently cannulated with a 0.035 Glidewire and this was advanced into the renal pelvis. Using the semirigid ureteroscope, the stone was broken into pieces and removed with a stone basket. Utilizing the safety wire and the cystoscope, a 6 Trinidadian 24 cm JJ stent was placed over the wire with good positioning in the renal pelvis as well as the urinary bladder. The bladder was then emptied and the cystoscope was removed. The patient was awakened and taken to the recovery room in good condition. There were no complications during this procedure. Surgical Findings: Left ureteral stone Complications Complications: No Admit VTE Documentation VTE Present on Admission: Yes VTE Mechan Device Prophylaxis: SCD's VTE Pharm Prophylaxis ordered?: No Reason prophylaxis not ordered: Treatment Not Indicated
--- NOTE | 2024-08-18 12:16 | PCM.OPRPT ---
Operative Report (Standard) Operative Information Date of Procedure: 08/18/24 Pre-Operative Diagnosis: Left ureteral calculus Post-Operative Diagnosis: Same Surgery/Procedure Performed: Cystoscopy, left retrograde pyelogram, left ureteroscopy, removal of stone from the bladder senior java software engineer: No Type of Anesthesia: General RN Documented Start/Stop Times: Operation Date: 08/18/24 12:00 Case Time Into Pre-Op 08/18/24 10:02 Procedure Start Time: 12:34 Procedure Stop Time: 12:40 Select all DRAINS/GRAFTS/IMPLANTS that apply: None Estimated Blood Loss: <5cc Specimen collected: Yes Description of specimen(s) removed: Ureteral calculus Description of surgery: The patient is a 69-year-old female with a left ureteral calculus who presents for surgical intervention. Informed consent was obtained. She was taken to the operating room and placed on the operating room table. Anesthesia monitored the head, neck, airway, IV access and vital signs throughout the case. Once anesthesia was appropriate ministered, she was placed into dorsolithotomy position was prepped and draped in usual sterile fashion. The cystoscope was inserted through the urethra under direct visualization into the urinary bladder. Direct visualization of the bladder mucosa was done revealing no evidence of mass, or ulceration. There was a 8 mm calculus lying in the posterior bladder. The stone was removed and sent for analysis. An 8 [place] cone-tip catheter was used to gently cannulate the left ureteral orifice and contrast was injected in retrograde fashion revealing a possible remaining stone in the distal ureter. The decision was made to proceed with ureteroscopy. A 0.035 Glidewire was passed through the left ureteral orifice into the renal pelvis. Using the semirigid ureteroscope, access to the ureter was obtained and the scope was easily advanced all the way to the ureteropelvic junction. There was no evidence of stone, mass or obstruction identified. The scope was removed. The patient was awakened and taken to the recovery room in good condition. There were no complications during this procedure. Surgical Findings: Left ureteral stone had passed into the urinary bladder, it was retrieved and sent for analysis. Complications Complications: No Admit VTE Documentation VTE Present on Admission: Yes VTE Mechan Device Prophylaxis: SCD's VTE Pharm Prophylaxis ordered?: No Reason prophylaxis not ordered: Treatment Not Indicated
--- NOTE | 2024-08-18 12:57 | PCM.POST.ANE ---
Anesthesia: Postop Eval I Current Vital Signs Temperature: 98.1 F Pulse Rate: 83 Blood Pressure: 147/70 Respiratory Rate: 20 Pulse Ox: 97 Oxygen Delivery Method: Nasal Cannula Oxygen Flow Rate (L/min): 3 Assessment Airway patent: Yes Spontaneous unlabored respirations: Yes Mental status: Awake and Calm nausea: No Vomiting: No Anesthesia Complication: No Fluid Hydration Crystalloid volume administer (ml): 700 Total IV fluid infused: 700 Progress Note Anesthesia document: Postop Eval 1 completed: Yes
--- NOTE | 2024-08-18 18:37 | POSTOPAN2_ITS ---
Anesthesia Postop Eval I Sum Postop Eval Completion status Anesthesia document: Postop Eval 1 completed: Yes Anesthesia Postop Eval I Summary Anesthesia Postop Eval I Summary: Anesthesia Postop Eval I: Assessment Summary Airway patent Yes 08/18/24 12:58 PRODUCT SAFETY AND STANDARDS ENGINEER.[email or web address] Spontaneous unlabored Yes 08/18/24 12:58 PRODUCT SAFETY AND STANDARDS ENGINEER.RWOO respirations Mental status Awake,Calm 08/18/24 12:58 PRODUCT SAFETY AND STANDARDS ENGINEER.RWOO nausea No 08/18/24 12:58 PRODUCT SAFETY AND STANDARDS ENGINEER.RWOO Vomiting No 08/18/24 12:58 PRODUCT SAFETY AND STANDARDS ENGINEER.RWOO Anesthesia Postop Eval I: Fluid Summary Crystalloid volume administer 700 08/18/24 12:58 PRODUCT SAFETY AND STANDARDS ENGINEER.RWOO (ml) Colloids volume administered ( ml) Blood Product volume administered (ml) Total IV fluid infused 700 08/18/24 12:58 PRODUCT SAFETY AND STANDARDS ENGINEER.RWOO Anesthesia Postop Eval I: Summary Notes Anesthesia Complication No 08/18/24 12:58 PRODUCT SAFETY AND STANDARDS ENGINEER.RWOO Anesthesia Complication Comment: Post-operative progress note Anesthesia: Postop Eval II Evaluation Mental status: Awake and Calm Pain Level: 1 nausea: No Vomiting: No Complications Anesthesia Complication: No
--- NOTE | 2024-08-18 18:37 | PCM.POSTANE2 ---
Anesthesia Postop Eval I Sum Postop Eval Completion status Anesthesia document: Postop Eval 1 completed: Yes Anesthesia Postop Eval I Summary Anesthesia Postop Eval I Summary: Anesthesia Postop Eval I: Assessment Summary Airway patent Yes 08/18/24 12:58 SUBSCRIPTION [email or web address] Spontaneous unlabored Yes 08/18/24 12:58 SUBSCRIPTION AGENT.[email or web address] respirations Mental status Awake,Calm 08/18/24 12:58 SUBSCRIPTION AGENT.[email or web address] nausea No 08/18/24 12:58 SUBSCRIPTION AGENT.[email or web address] Vomiting No 08/18/24 12:58 SUBSCRIPTION AGENT.RWOO Anesthesia Postop Eval I: Fluid Summary Crystalloid volume administer 700 08/18/24 12:58 SUBSCRIPTION AGENT.RWOO (ml) Colloids volume administered ( ml) Blood Product volume administered (ml) Total IV fluid infused 700 08/18/24 12:58 SUBSCRIPTION AGENT.RWOO Anesthesia Postop Eval I: Summary Notes Anesthesia Complication No 08/18/24 12:58 SUBSCRIPTION AGENT.RWOO Anesthesia Complication Comment: Post-operative progress note Anesthesia: Postop Eval II Evaluation Mental status: Awake and Calm Pain Level: 1 nausea: No Vomiting: No Complications Anesthesia Complication: No
[2024-08-24 21:07] LABS: Ca Oxalate, Dihydrate 30 % (.); Ca Oxalate, Monohydrate 70 % (.); Size 7x4 mm (.)
== END 2024-08-18 14:36 | disposition home or self-care (01) ==
LOC: SDC 09:59 → AC 10:00
PROVIDERS: PCP Family Medicine; Referring Provider Urology; Visit Provider Urology
PROC: 0TJ98ZZ Inspection of Ureter, Via Natural or Artificial Opening Endoscopic (ICD-10-PCS; CPT 52352; principal; 2024-08-18 11:50)
DX: N13.2 Hydronephrosis with renal and ureteral calculous obstruction (principal); N21.0 Calculus in bladder; N39.46 Mixed incontinence; I10 Essential (primary) hypertension; E78.5 Hyperlipidemia, unspecified; Z79.899 Other long term (current) drug therapy
CPT/HCPCS: 52352; 00910; 76000; 82360; 88300; J2405